=== PATIENT | male | born 1990 | race Caucasian/White ===

== ENCOUNTER 2023-10-11 05:08 | Emergency (ER) | payer MEDICAID ==
[~2023-10-11] VITALS: Ht 180.3 cm; Wt 81.6 kg
[2023-10-11] MEDS ORDERED: NAPR-1009 PO (08:35)
[2023-10-11] MEDS ORDERED: KETOROLAC TROMETHAMINE INJ 30 MG/ML VIAL ONE (08:41)
[2023-10-11] MEDS: KETOROLAC TROMETHAMINE INJ 30 MG/ML VIAL IM ONE (08:42)
[2023-10-11 08:43] VITALS: BP 120/70; TEMP 98.2; O2SAT 99
== END 2023-10-11 08:43 | disposition home or self-care (01) ==
LOC: ER 05:18
DX: M79.662 Pain in left lower leg (principal); J45.909 Unspecified asthma, uncomplicated
CPT/HCPCS: 99285; 93971; 96372; J1885